=== PATIENT | female | born 2000 | race Caucasian/White ===

== ENCOUNTER → 2025-03-15 10:33 | Outpatient (BNVA) | payer OTHER, SELFPAY | PROVIDERS: Visit Provider Nurse Practitioner Women's Health | DX: Z01.419 Encounter for gynecological examination (general) (routine) without abnormal findings (principal); R30.0 Dysuria | CPT/HCPCS: 81000; 88175 ==

== ENCOUNTER → 2025-03-23 08:41 | Outpatient (BNVA) | payer OTHER, SELFPAY | PROVIDERS: Visit Provider Nurse Practitioner Women's Health | DX: N94.4 Primary dysmenorrhea (principal); N94.5 Secondary dysmenorrhea | CPT/HCPCS: 76830 ==

== ENCOUNTER → 2025-05-02 13:35 | Outpatient (BNVA) | payer OTHER, SELFPAY | PROVIDERS: Visit Provider Nurse Practitioner Women's Health | DX: Z12.4 Encounter for screening for malignant neoplasm of cervix (principal) | CPT/HCPCS: 87624 ==